=== PATIENT | female | born 1950 | race Caucasian/White ===

== ENCOUNTER 2017-05-05 05:05 | Emergency (ER) | payer BC ==
[~2017-05-05] VITALS: Ht 160 cm; Wt 81.6 kg
[2017-05-05 07:13] LABS: Urine Bacteria NONE SEEN /hpf (None Seen); Urine Blood 3+ /uL (Negative); Urine Specific Gravity 1.019 (1.001-1.035); Urine WBC 1669 /hpf (0 - 5)
[2017-05-05 07:15] VITALS: BP 135/68
[2017-05-05] MEDS ORDERED: cefTRIAXone SOD 1,000 MG VL IM ONE (07:45)
[2017-05-05] MEDS ORDERED: PHENAZOPYRIDINE HCL 100 MG TAB PO ONE (07:45)
== END 2017-05-05 08:30 | disposition home or self-care (01) ==
LOC: ER 05:05
DX: N39.0 Urinary tract infection, site not specified (principal)
CPT/HCPCS: 81001; 96372; 99283; J0696

== ENCOUNTER 2017-07-09 08:34 | Emergency (ER) | payer BC ==
[~2017-07-09] VITALS: Ht 160 cm; Wt 79.4 kg
[2017-07-09 09:40] VITALS: BP 155/76
== END 2017-07-09 10:38 | disposition home or self-care (01) ==
LOC: ER 08:34
DX: M71.21 Synovial cyst of popliteal space [Baker], right knee (principal); Z88.6 Allergy status to analgesic agent; Z88.8 Allergy status to other drugs, medicaments and biological substances; Z90.710 Acquired absence of both cervix and uterus
CPT/HCPCS: 73700

== ENCOUNTER 2017-09-10 08:19 | Day surgery (SDC) | payer BC ==
[2017-09-06 08:47] LABS: Basophils # (auto) 0.1 uL; Eosinophils # (auto) 0.2 uL; Eosinophils % (auto) 2.4 % (0.0-7.0); Hematocrit 42.8 % (36.0-46.0); Hemoglobin 14.9 g/dL (12.2-16.2); Lymphocytes # (auto) 1.7 uL; Lymphocytes % (auto) 25.5 % (10.0-50.0); Mean Corpuscular Hemoglobin 32.6 pg (28.0-32.0); Mean Corpuscular Hgb Conc. 34.9 g/dL (32.0-36.0); Mean Corpuscular Volume 93.4 fL (80.0-100.0); Monocytes # (auto) 0.6 uL; Monocytes % (auto) 9.4 % (0.0-12.0); Neutrophils # (auto) 4.1 uL; Neutrophils % (auto) 61.7 % (37.0-80.0); Nucleated Red Blood Cells % 0.1 %; Platelet Count (auto) 210 10^3/uL (140-450); Red Blood Cells 4.58 10^6/uL (4.0-5.20); Red Cell Distribution Width 13.8 % (11.8-14.3); White Blood Cell 6.6 10^3/uL (4.4-10.8)
[2017-09-06 09:02] LABS: INR 0.93 (0.9-1.15); Partial Thromboplastin Time 28.8 sec (23.78-33.04)
[~2017-09-10] VITALS: Ht 160 cm; Wt 83.0 kg
[~2017-09-10 08:19] MED LIST: ASPI81TA27 PO; HYDR12.56 PO; LEVO75TA6 PO; LISI10TA6 PO; LOVA40TA72 PO; OMEP20TA PO; ROPI2TAB31 PO
[2017-09-10] MEDS ORDERED: MIDAZOLAM HCL 5 MG/ML-1ML VIAL ONE (08:25)
[2017-09-10] MEDS ORDERED: diphenhdrAMINE HCL 50 MG/1 ML VL ONE (08:25)
[2017-09-10] MEDS ORDERED: fentaNYL CITRATE 100 MCG/2 ML VL ONE (08:26)
[2017-09-10] MEDS ORDERED: LIDOCAINE VISCOUS 2% 15ML UD ONE (08:26)
[2017-09-10] MEDS ORDERED: SODIUM CHLORIDE LOCK 10 ML ONE (08:26)
[2017-09-10 11:20] VITALS: BP 122/77
== END 2017-09-10 11:25 | disposition home or self-care (01) ==
LOC: GI 08:19
PROVIDERS: ATTEND Internal Medicine Gastroenterology
DX: K29.50 Unspecified chronic gastritis without bleeding (principal); K44.9 Diaphragmatic hernia without obstruction or gangrene; E66.9 Obesity, unspecified; Z68.32 Body mass index [BMI] 32.0-32.9, adult; Z90.710 Acquired absence of both cervix and uterus
CPT/HCPCS: 36415; 43239; 85025; 85610; 85730; J2250; J3010; J7030; A6257

== ENCOUNTER 2017-09-25 06:36 | Day surgery (SDC) | payer BC ==
[2017-09-21 15:04] LABS: Basophils # (auto) 0.1 uL; Basophils % (auto) 0.7 % (0.0-2.0); Eosinophils # (auto) 0.2 uL; Eosinophils % (auto) 2.3 % (0.0-7.0); Hematocrit 43.1 % (36.0-46.0); Hemoglobin 14.9 g/dL (12.2-16.2); Lymphocytes # (auto) 2.4 uL; Mean Corpuscular Hemoglobin 32.4 pg (28.0-32.0); Mean Corpuscular Hgb Conc. 34.6 g/dL (32.0-36.0); Mean Corpuscular Volume 93.5 fL (80.0-100.0); Monocytes # (auto) 0.7 uL; Monocytes % (auto) 9.4 % (0.0-12.0); Neutrophils # (auto) 4.2 uL; Neutrophils % (auto) 55.6 % (37.0-80.0); Nucleated Red Blood Cells % 0.1 %; Platelet Count (auto) 256 10^3/uL (140-450); Red Cell Distribution Width 13.3 % (11.8-14.3); White Blood Cell 7.5 10^3/uL (4.4-10.8)
[2017-09-21 15:19] LABS: Urine Bacteria NONE SEEN /hpf (None Seen); Urine Blood TRACE /uL (Negative); Urine Mucus FEW (None Seen); Urine Specific Gravity 1.012 (1.001-1.035); Urine WBC 1 /hpf (0 - 5)
[2017-09-21 15:21] LABS: BUN/Creatinine Ratio 19.8; INR 0.92 (0.9-1.15); Partial Thromboplastin Time 28.1 sec (23.78-33.04); Potassium 3.8 mmol/L (3.5-5.1); Prothrombin Time 9.9 sec (9.27-12.13)
[2017-09-21 15:22] LABS: Albumin 4.2 g/dL (3.4-5.0); Bilirubin, Total 0.4 mg/dL (0.2-1.0); Calcium 9.1 mg/dL (8.5-10.1); Total Protein 7.7 g/dL (6.4-8.2)
[~2017-09-25] VITALS: Ht 160 cm; Wt 83.5 kg
[2017-09-25] MEDS ORDERED: ceFAZolin 1GM/50ML 50 ML IV ONE (07:10)
[2017-09-25] MEDS ORDERED: MIDAZOLAM HCL 1MG/1ML-2 ML VIAL ONE (07:53)
[2017-09-25] MEDS ORDERED: LIDOCAINE 1% (LOCAL ANESTH.) PF 5ml SDV ONE (08:16)
[2017-09-25] MEDS ORDERED: SUCCINYLCHOLINE CHLORIDE 20 MG/ML 10ML VIAL IV ONE (08:16)
[2017-09-25] MEDS ORDERED: ROCURONIUM 10MG/ML 10ML VIAL IV ONE (08:21)
[2017-09-25] MEDS ORDERED: PROPOFOL 10 MG/ML 20 ML IV ONE (08:21)
[2017-09-25] MEDS ORDERED: ONDANSETRON HCL 4 MG/2 ML VIAL IV ONE (08:30)
[2017-09-25] MEDS ORDERED: NALOXONE HCL 0.4 MG/ML VIAL IV PRN (08:30)
[2017-09-25] MEDS ORDERED: MORPHINE SULF(PF) 0.5MG/ML 10ML VIAL ONE (08:31)
[2017-09-25] MEDS ORDERED: METOCLOPRAMIDE HCL 5MG/ml INJ 2ml VIAL ONE (08:35)
[2017-09-25] MEDS ORDERED: fentaNYL CITRATE 100 MCG/2 ML VL ONE (08:36)
[2017-09-25] MEDS ORDERED: DEXAMETHASONE SOD PHOS 10MG/1ML VIAL INJ ONE (08:58)
[2017-09-25] MEDS ORDERED: KETOROLAC TROMETH 30 MG/ML 1ML VIAL ONE (09:29)
[2017-09-25] MEDS ORDERED: GLYCOPYRROLATE 0.2 MG/ML 1ML VIAL ONE ×2 (09:34)
[2017-09-25] MEDS ORDERED: NEOSTIGMINE 1 MG/ML INJ (10mg/10ML VIAL) ONE (09:34)
[2017-09-25] MEDS: MORPHINE SULFATE 4 MG/ML SYR/VIAL IV PRN ×2 (10:10→10:22)
[2017-09-25 10:51] VITALS: BP 148/58
== END 2017-09-25 10:55 | disposition home or self-care (01) ==
LOC: SUR 06:36
PROVIDERS: ATTEND Orthopaedic Surgery
DX: M23.221 Derangement of posterior horn of medial meniscus due to old tear or injury, right knee (principal); M67.861 Other specified disorders of synovium, right knee; M94.261 Chondromalacia, right knee; E66.9 Obesity, unspecified; I10 Essential (primary) hypertension; E03.9 Hypothyroidism, unspecified; G47.33 Obstructive sleep apnea (adult) (pediatric); M19.90 Unspecified osteoarthritis, unspecified site; K21.9 Gastro-esophageal reflux disease without esophagitis; E78.5 Hyperlipidemia, unspecified; Z87.891 Personal history of nicotine dependence; Z68.32 Body mass index [BMI] 32.0-32.9, adult; Z90.710 Acquired absence of both cervix and uterus; Z79.82 Long term (current) use of aspirin; Z79.899 Other long term (current) drug therapy; Z98.890 Other specified postprocedural states
CPT/HCPCS: 29881; 36415; 80053; 81001; 85025; 85610; 85730; J0330; J0690; J1100; J1885; J2250; J2270; J2405; J2704; J2765; J3010; A4565; A6257

== ENCOUNTER 2018-06-03 13:58 | Emergency (ER) | payer BC ==
[~2018-06-03] VITALS: Ht 160 cm; Wt 86.2 kg
[2018-06-03] MEDS ORDERED: cloNIDine HCL 0.1 MG TAB PO ONE (15:15)
[2018-06-03 17:35] VITALS: BP 152/69
== END 2018-06-03 17:51 | disposition home or self-care (01) ==
LOC: EDBD 13:58 → ER 13:58
DX: I10 Essential (primary) hypertension (principal); J32.9 Chronic sinusitis, unspecified
CPT/HCPCS: 70450

== ENCOUNTER → 2018-06-04 | Outpatient (CLI) | payer BC ==
[2018-06-04 10:10] LABS: Basophils # (auto) 0.1 uL; Eosinophils # (auto) 0.1 uL; Eosinophils % (auto) 1.2 % (0.0-7.0); Hematocrit 45.4 % (36.0-46.0); Hemoglobin 15.3 g/dL (12.2-16.2); Lymphocytes # (auto) 2.2 uL; Lymphocytes % (auto) 18.4 % (10.0-50.0); Mean Corpuscular Hemoglobin 31.4 pg (28.0-32.0); Mean Corpuscular Hgb Conc. 33.7 g/dL (32.0-36.0); Mean Corpuscular Volume 93.3 fL (80.0-100.0); Monocytes # (auto) 0.9 uL; Monocytes % (auto) 7.4 % (0.0-12.0); Neutrophils # (auto) 8.8 uL; Platelet Count (auto) 259 10^3/uL (140-450); Red Blood Cells 4.86 10^6/uL (4.0-5.20); Red Cell Distribution Width 13.6 % (11.8-14.3); White Blood Cell 12.2 10^3/uL (4.4-10.8)
[2018-06-04 10:34] LABS: Albumin 4.3 g/dL (3.4-5.0); BUN/Creatinine Ratio 17.2; Calcium 9.3 mg/dL (8.5-10.1); Potassium 4.4 mmol/L (3.5-5.1); Uric Acid 5.5 mg/dL (2.6-6.0)
[2018-06-04 10:37] LABS: Bilirubin, Total 0.5 mg/dL (0.2-1.0); Total Protein 7.7 g/dL (6.4-8.2)
== END | disposition home or self-care (01) ==
LOC: LAB 09:59
PROVIDERS: ATTEND Internal Medicine
DX: I12.9 Hypertensive chronic kidney disease with stage 1 through stage 4 chronic kidney disease, or unspecified chronic kidney disease (principal); E11.22 Type 2 diabetes mellitus with diabetic chronic kidney disease; N18.3 Chronic kidney disease, stage 3 (moderate); I49.9 Cardiac arrhythmia, unspecified
CPT/HCPCS: 36415; 80053; 84550; 85025; 85652

== ENCOUNTER → 2018-09-06 | Outpatient (CLI) | payer BC ==
[~2018-09-06] MED LIST changes: +ASPI-404 PO; -ASPI81TA27 PO
[2018-09-06 09:26] LABS: Basophils # (auto) 0.1 uL; Basophils % (auto) 1.3 % (0.0-2.0); Eosinophils # (auto) 0.1 uL; Eosinophils % (auto) 2.1 % (0.0-7.0); Hematocrit 42.5 % (36.0-46.0); Hemoglobin 14.8 g/dL (12.2-16.2); Lymphocytes # (auto) 1.8 uL; Lymphocytes % (auto) 29.1 % (10.0-50.0); Mean Corpuscular Hemoglobin 32.4 pg (28.0-32.0); Mean Corpuscular Hgb Conc. 34.9 g/dL (32.0-36.0); Mean Corpuscular Volume 92.7 fL (80.0-100.0); Monocytes # (auto) 0.5 uL; Neutrophils # (auto) 3.7 uL; Neutrophils % (auto) 59.5 % (37.0-80.0); Nucleated Red Blood Cells % 0.2 %; Platelet Count (auto) 204 10^3/uL (140-450); Red Blood Cells 4.59 10^6/uL (4.0-5.20); White Blood Cell 6.2 10^3/uL (4.4-10.8)
[2018-09-06 09:38] LABS: Potassium 4.3 mmol/L (3.5-5.1)
[2018-09-06 09:47] LABS: Albumin 3.8 g/dL (3.4-5.0); BUN/Creatinine Ratio 19.2; Bilirubin, Total 0.6 mg/dL (0.2-1.0); Calcium 8.7 mg/dL (8.5-10.1); Total Protein 7.1 g/dL (6.4-8.2)
[2018-09-06 09:52] LABS: Urine Bacteria NONE SEEN /hpf (None Seen); Urine Blood TRACE /uL (Negative); Urine Specific Gravity 1.021 (1.001-1.035); Urine WBC 1 /hpf (0 - 5)
== END | disposition home or self-care (01) ==
LOC: LAB 08:17
PROVIDERS: ATTEND Internal Medicine
DX: I10 Essential (primary) hypertension (principal); R12 Heartburn
CPT/HCPCS: 36415; 80053; 80061; 81001; 84439; 84443; 85025; 85652; 86301